=== PATIENT | male | born 1970 | race Caucasian/White ===

== ENCOUNTER → 2016-11-22 | Emergency (ER) | payer BC ==
[~2016-11-22] VITALS: Ht 170.2 cm; Wt 90.6 kg
[~2016-11-22] MED LIST: BACITRACIN OINTMENT 0.9 GM PACKET TOP ONE; LIDOCAINE PF 1% (XYLOCAINE) 2 ML VIAL INJ ONE; TETANUS & DIPHTHERIA TOXOIDS (Td) 0.5 ML (DECAVAC) VIAL IM ONE
[2016-11-22 13:34] VITALS: BP 136/87
== END | disposition home or self-care (01) ==
LOC: EDUNIT# 13:30 → ED 13:34
DX: S61.214A Laceration without foreign body of right ring finger without damage to nail, initial encounter (principal); W45.8XXA Other foreign body or object entering through skin, initial encounter; Y93.H9 Activity, other involving exterior property and land maintenance, building and construction; Y92.89 Other specified places as the place of occurrence of the external cause
CPT/HCPCS: 12001; 90471; 90714; 99283; J2001